=== PATIENT | female | born 1930 | race Caucasian/White ===

== ENCOUNTER 2016-10-20 10:19 | Observation (INO) | payer OTHER, MEDICARE ==
[~2016-10-20] VITALS: Ht 165.1 cm; Wt 94.1 kg
[~2016-10-20 10:19] MED LIST: 8 HOUR C500 MG PO; AMIODARONE HCL200 MG PO; ASCORBIC ACID500 M3 PO; ASPIRIN E.C.81 M1 PO; Ascorbic Acid,Ester- PO; C COMPLEX500 MG PO; CEFTIN500 MG PO; CIPRO250 MG PO; COUMADIN,JANTOVE2 MG PO; COUMADIN2 MG PO; Cipro PO; Cordarone, Pacerone PO; Coumadin Protocol PO; Coumadin,Jantoven PO; DELTASONE20 M1 PO; DOCUSATE SODIU100 MG PO; DUONEB 2.5-0.5 M3 ML AEROSOL; FEOSOL325 MG PO; FERRO-TIME325 MG PO; Feosol PO; GLUCOPHAGE XR750 MG PO; GLUCOPHAGE500 MG PO; Glucophage PO; HALFPRIN162 MG PO; JANUVIA100 MG PO; JANUVIA25 MG PO; K-DUR20 MEQ PO; KLOR-CON 1010 ME1 PO; LANTUS 10100 UNITS/ SC; LANTUS 3 M100 UNITS/ SC; LANTUS 3 M100 UNITS1 SC; LASIX20 MG PO; LASIX40 MG PO; LEVAQUIN250 MG PO; LEVAQUIN500 MG PO; LEVEMIR100 UNIT/2 SC; LEVOFLOXACIN250 MG PO; LEVOFLOXACIN750 MG PO; LIPITOR10 MG PO; LOPRESSOR100 M1 PO; LYRICA50 MG PO; Lasix PO; Lopressor PO; MICRO-K10 ME2 PO; MYRBETRIQ25 MG PO; Micro-K,K-Tab,K-Dur, PO; NEXIUM 24HR20 MG PO; NEXIUM40 MG PO; NORVASC10 MG PO; NORVASC5 MG PO; NOVOLOG 10100 UNITS/ IV; NOVOLOG PE100 UNITS/ SC; NYSTATIN15 GM TP; Norvasc PO; OS-CAL 500+D C1 EAC1 PO; OxyCODONE PO; Oyst-Cal D, Oscal W/ PO; PACERONE200 M1 PO; PACERONE200 MG PO; PROTONIX40 MG PO; Protonix PO; SINGULAIR10 MG PO; Singulair PO; THERAGRAN1 TABLET PO; TOPROL XL100 MG PO; TRAZODONE HCL50 MG PO; TYLENOL REGULA325 MG PO; Tylenol Regular Stre PO; VICODIN 5/500 PO; VICODIN,LORT1 TABLET PO; XARELTO15 MG PO; ZOCOR40 MG PO; Zocor PO; lantus SC
[2016-10-20 11:12] LABS: EOSINOPHIL (%) 2.2 % (0-5); EOSINOPHIL COUNT 0.3 K/uL (0-0.3); HEMATOCRIT 44.1 % (36.0-46.0); IMMATURE GRANULOCYTE (%) 0.7 % (0.0-0.7); LYMPHOCYTE COUNT 2.3 K/uL (1.0-2.8); MCH 31.1 PG (29.0-34.0); MCHC 33.1 G/DL (30.0-36.0); MCV 93.8 FL (83-99); MEAN PLAT.VOLUME 10.3 uM^3 (9.5-12.4); MONOCYTE (%) 6.9 % (3-12); MONOCYTE COUNT 0.9 K/uL (0-0.8); NEUTROPHIL (%) 72.8 % (45-76); NEUTROPHIL COUNT 9.9 K/uL (1.8-6.4); PLATELET COUNT 157 K/uL (156-360); RBC DIS.WIDTH-CV 14.2 % (11.8-14.6); RBC DIS.WIDTH-SD 46.8 % (39-53); WHITE BLOOD COUNT 13.6 K/uL (4.1-10.2)
[2016-10-20 11:38] LABS: CHLORIDE 101 mEq/L (99-109); POTASSIUM 3.9 mEq/L (3.7-5.4); SODIUM 143 mEq/L (136-147)
[2016-10-20 11:41] LABS: GLUCOSE 111 mg/dL (70-99)
[2016-10-20 11:42] LABS: ANION GAP 11 MEQ/L (2-14)
[2016-10-20 11:43] LABS: TOTAL BILIRUBIN 0.8 mg/dL (0.0-1.0)
[2016-10-20 11:44] LABS: ALKALINE PHOSPHATASE 64 IU/L (3-129); GFR ESTIMATE (CALCULATED) 35 mL/min/
[2016-10-20 11:45] LABS: TROP-I INTERPRETATION NEGATIVE; TROPONIN-I 0.06 ng/mL (0.0-0.30); UREA NITROGEN (BUN) 18 mg/dL (9-23)
[2016-10-20 11:47] LABS: CREATINE KINASE 32 IU/L (1-294); TOTAL CK 32 IU/L (1-294)
[2016-10-20 11:54] LABS: CK-MB 1.5 ng/mL (0.0-4.9)
[2016-10-20 13:01] LABS: ADD MIUA? YES; BILIRUBIN NEGATIVE; BLOOD NEGATIVE; COLOR YELLOW ((YELLOW)); GLUCOSE (STRIP) NEGATIVE; KETONES NEGATIVE; LEUKOCYTES LARGE; NITRITE POSITIVE; PROTEIN (STRIP) NEGATIVE; SPECIFIC GRAVITY 1.012 (1.000-1.030); UROBILINOGEN 0.2 MG/DL (0.2-1.0)
[2016-10-20 13:22] LABS: BACTERIA 3+ /HPF; EPITHELIAL CELLS RARE /HPF; HYALINE CASTS 0-5 /LPF; MUCUS TRACE /LPF; UCUL ADDED? YES; WHITE BLOOD CELLS TNTC /HPF (0-5)
[2016-10-20] MEDS ORDERED: DESYREL100 MG PO (15:08)
[2016-10-20] MEDS ORDERED: LEVEMIR100 UNIT/2 SC ×2 (15:14)
[2016-10-20 16:37] VITALS: BP 138/68
[2016-10-20 17:27] LABS: POINT-OF-CARE METER ID UU14162513
[2016-10-20 17:59] LABS: TROP-I INTERPRETATION NEGATIVE; TROPONIN-I 0.04 ng/mL (0.0-0.30)
[2016-10-20 20:00] VITALS: BP 128/63
[2016-10-20 22:14] LABS: POINT-OF-CARE METER ID UU14162513
[2016-10-20 23:44] LABS: TROP-I INTERPRETATION NEGATIVE; TROPONIN-I 0.05 ng/mL (0.0-0.30)
[2016-10-21] VITALS: BP 118/60
[2016-10-21 03:42] VITALS: BP 116/66
[2016-10-21 07:36] LABS: ANION GAP 8 MEQ/L (2-14); CHLORIDE 99 MEQ/L (99-109); GFR ESTIMATE (CALCULATED) 41 mL/min/; POTASSIUM 3.8 MEQ/L (3.7-5.4); SAMPLE HEMOLYSIS CHECK 0; SAMPLE ICTERIC CHECK 0; SAMPLE LIPEMIA CHECK 0; SODIUM 139 MEQ/L (136-147); UREA NITROGEN (BUN) 19 mg/dL (9-23)
[2016-10-21 07:38] LABS: HEMATOCRIT 37.5 % (36.0-46.0); MCH 31.3 PG (29.0-34.0); MCHC 33.3 G/DL (30.0-36.0); MEAN PLAT.VOLUME 10.9 uM^3 (9.5-12.4); PLATELET COUNT 127 K/uL (156-360); RBC DIS.WIDTH-CV 14.3 % (11.8-14.6); RBC DIS.WIDTH-SD 48.8 % (39-53); RED BLOOD COUNT 3.99 M/uL (3.80-5.20); WHITE BLOOD COUNT 13.8 K/uL (4.1-10.2)
[2016-10-21 07:39] LABS: GLUCOSE 77 mg/dL (70-99)
[2016-10-21 08:16] VITALS: BP 152/76
[2016-10-21] MEDS ORDERED: LEVOFLOXACIN750 MG PO (11:39)
[2016-10-21] MEDS ORDERED: LOPRESSOR25 MG PO (12:07)
[2016-10-21 12:13] VITALS: BP 167/87
== END 2016-10-21 14:00 | disposition home health service (06) ==
LOC: EME 10:19 → 5WEST 14:31 → EDOF 14:31 → 5WEST 16:24
PROVIDERS: Emergency Medicine; Internal Medicine
DX: R55 Syncope and collapse (principal); I48.2 Chronic atrial fibrillation; N39.0 Urinary tract infection, site not specified; I12.9 Hypertensive chronic kidney disease with stage 1 through stage 4 chronic kidney disease, or unspecified chronic kidney disease; N18.9 Chronic kidney disease, unspecified; R29.6 Repeated falls; I25.10 Atherosclerotic heart disease of native coronary artery without angina pectoris; E78.5 Hyperlipidemia, unspecified; Z95.1 Presence of aortocoronary bypass graft; E11.9 Type 2 diabetes mellitus without complications; Z79.4 Long term (current) use of insulin; M19.90 Unspecified osteoarthritis, unspecified site; Z86.718 Personal history of other venous thrombosis and embolism
CPT/HCPCS: 70450; 71010; 72070; 72110; 72125; 80048; 80053; 81003; 82550; 82553; 82948; 84484; 85025; 85027; 87077; 87086; 87186; 93005; 99281; 99285; G0378; G8978 GP CJ; G8979 GP CI; G8987 GO CJ; G8988 CI; J1335; J1815; J1956; J7050

== ENCOUNTER 2016-10-24 18:30 | Observation (INO) | payer OTHER, MEDICARE ==
[~2016-10-24] VITALS: Ht 165.1 cm; Wt 92.8 kg
[~2016-10-24 18:30] MED LIST changes: +DESYREL100 MG PO; +LOPRESSOR25 MG PO
[2016-10-24 20:41] LABS: BASOPHIL COUNT 0.1 K/uL (0-0.1); EOSINOPHIL (%) 2.4 % (0-5); EOSINOPHIL COUNT 0.3 K/uL (0-0.3); HEMATOCRIT 36.5 % (36.0-46.0); IMMATURE GRANULOCYTE (%) 0.7 % (0.0-0.7); IMMATURE GRANULOCYTE COUNT 0.1 K/uL; INSTRUMENT ABS NEUTROPHIL CT 8.8 K/uL; MCH 30.9 PG (29.0-34.0); MCHC 32.1 G/DL (30.0-36.0); MCV 96.3 FL (83-99); MEAN PLAT.VOLUME 11.8 uM^3 (9.5-12.4); MONOCYTE (%) 8.6 % (3-12); MONOCYTE COUNT 1.1 K/uL (0-0.8); NEUTROPHIL (%) 71.9 % (45-76); NEUTROPHIL COUNT 8.8 K/uL (1.8-6.4); PLATELET COUNT 120 K/uL (156-360); RBC DIS.WIDTH-CV 14.2 % (11.8-14.6); RBC DIS.WIDTH-SD 50.2 % (39-53); RED BLOOD COUNT 3.79 M/uL (3.80-5.20); WHITE BLOOD COUNT 12.3 K/uL (4.1-10.2)
[2016-10-24 20:51] LABS: CHLORIDE 102 mEq/L (99-109); INTER. NORMALIZED RATIO 1.1; POTASSIUM 4.2 mEq/L (3.7-5.4); PROTHROMBIN TIME 10.8 (9.2-11.2); SODIUM 139 mEq/L (136-147)
[2016-10-24 20:53] LABS: GLUCOSE 130 mg/dL (70-99)
[2016-10-24 20:54] LABS: ANION GAP 11 MEQ/L (2-14)
[2016-10-24 20:57] LABS: ALKALINE PHOSPHATASE 52 IU/L (3-129); GFR ESTIMATE (CALCULATED) 38 mL/min/
[2016-10-24 20:58] LABS: UREA NITROGEN (BUN) 21 mg/dL (9-23)
[2016-10-24 21:01] LABS: TOTAL BILIRUBIN 0.4 mg/dL (0.0-1.0)
[2016-10-24 21:06] LABS: TROP-I INTERPRETATION NEGATIVE; TROPONIN-I 0.03 ng/mL (0.0-0.30)
[2016-10-24] MEDS ORDERED: NOVOLOG PE100 UNITS/ SC (23:00)
[2016-10-24] MEDS ORDERED: OS-CAL 500+D T1 EAC1 PO (23:02)
[2016-10-24] MEDS ORDERED: TRAMADOL HCL50 MG PO (23:03)
[2016-10-24] MEDS ORDERED: LOPRESSOR25 MG PO (23:05)
[2016-10-24] MEDS ORDERED: LEVOFLOXACIN750 MG PO (23:06)
[2016-10-24] MEDS ORDERED: PROLIA60 MG/1 ML SC (23:07)
[2016-10-25 02:00] VITALS: BP 131/63
[2016-10-25 03:37] LABS: TROP-I INTERPRETATION NEGATIVE; TROPONIN-I 0.03 ng/mL (0.0-0.30)
[2016-10-25 08:35] LABS: POINT-OF-CARE METER ID UU13113831
[2016-10-25 10:02] VITALS: BP 99/73
[2016-10-25 10:44] VITALS: BP 154/61
[2016-10-25 11:23] LABS: TROP-I INTERPRETATION NEGATIVE; TROPONIN-I 0.02 ng/mL (0.0-0.30)
[2016-10-25 11:36] VITALS: BP 133/75
[2016-10-25 12:26] LABS: POINT-OF-CARE METER ID UU13113831
[2016-10-25 15:37] VITALS: BP 143/63
[2016-10-25] MEDS ORDERED: PERCOCET 7.51 TABLET PO (16:02)
[2016-10-25 17:28] LABS: POINT-OF-CARE METER ID UU13113831
== END 2016-10-25 19:44 | disposition home or self-care (01) ==
LOC: EME → EDBD 18:30 → 5WEST 10-25 00:03 → EDOF 10-25 00:03 → 5WEST 10-25 01:33
PROVIDERS: Emergency Medicine; Internal Medicine
DX: R07.9 Chest pain, unspecified (principal); I48.2 Chronic atrial fibrillation; I25.10 Atherosclerotic heart disease of native coronary artery without angina pectoris; I11.0 Hypertensive heart disease with heart failure; E11.9 Type 2 diabetes mellitus without complications; I50.9 Heart failure, unspecified; E78.5 Hyperlipidemia, unspecified; J44.9 Chronic obstructive pulmonary disease, unspecified; I25.2 Old myocardial infarction; D64.9 Anemia, unspecified; K21.9 Gastro-esophageal reflux disease without esophagitis; E66.01 Morbid (severe) obesity due to excess calories; Z86.718 Personal history of other venous thrombosis and embolism; Z95.1 Presence of aortocoronary bypass graft; Z79.01 Long term (current) use of anticoagulants
CPT/HCPCS: 71010; 80053; 82948; 84484; 85025; 85610; 93005; 99202; 99281; 99285; G0378

== ENCOUNTER 2016-11-10 18:52 | Observation (INO) | payer OTHER, MEDICARE ==
[~2016-11-10] VITALS: Ht 165.1 cm; Wt 92.6 kg
[~2016-11-10 18:52] MED LIST changes: +OS-CAL 500+D T1 EAC1 PO; +PERCOCET 7.51 TABLET PO; +PROLIA60 MG/1 ML SC; +TRAMADOL HCL50 MG PO
[2016-11-10 19:59] LABS: CHLORIDE 104 mEq/L (99-109); HEMATOCRIT 40.9 % (36.0-46.0); MCH 30.4 PG (29.0-34.0); MCHC 31.8 G/DL (30.0-36.0); MCV 95.8 FL (83-99); MEAN PLAT.VOLUME 10.2 uM^3 (9.5-12.4); POTASSIUM 4.4 mEq/L (3.7-5.4); RED BLOOD COUNT 4.27 M/uL (3.80-5.20); SODIUM 140 mEq/L (136-147)
[2016-11-10 20:01] LABS: GLUCOSE 138 mg/dL (70-99)
[2016-11-10 20:02] LABS: ANION GAP 14 MEQ/L (2-14)
[2016-11-10 20:03] LABS: TOTAL BILIRUBIN 0.3 mg/dL (0.0-1.0)
[2016-11-10 20:05] LABS: ALKALINE PHOSPHATASE 98 IU/L (3-129); GFR ESTIMATE (CALCULATED) 41 mL/min/
[2016-11-10 20:06] LABS: UREA NITROGEN (BUN) 14 mg/dL (9-23)
[2016-11-10 20:09] LABS: PLATELET COUNT 314 K/uL (156-360); WHITE BLOOD COUNT 7.2 K/uL (4.1-10.2)
[2016-11-10 21:31] LABS: BILIRUBIN NEGATIVE; BLOOD NEGATIVE; COLOR YELLOW ((YELLOW)); GLUCOSE (STRIP) NEGATIVE; KETONES 5; LEUKOCYTES NEGATIVE; NITRITE NEGATIVE; PROTEIN (STRIP) NEGATIVE; SPECIFIC GRAVITY 1.025 (1.000-1.030); UROBILINOGEN 0.2 MG/DL (0.2-1.0)
[2016-11-10 21:34] LABS: ADD MIUA? NO; UCUL ADDED? NO
[2016-11-10] MEDS ORDERED: LINZESS72 MCG PO (23:32)
[2016-11-10] MEDS ORDERED: LEVAQUIN250 MG PO (23:32)
[2016-11-10] MEDS ORDERED: NEXIUM40 MG PO (23:33)
[2016-11-10 23:42] LABS: INFLUENZA A VIRAL ANTIGEN NEGATIVE; INFLUENZA B VIRAL ANTIGEN NEGATIVE
[2016-11-11 01:07] VITALS: BP 144/65
[2016-11-11 05:00] VITALS: BP 140/66
[2016-11-11 06:36] LABS: BASOPHIL COUNT 0.1 K/uL (0-0.1); EOSINOPHIL (%) 2.2 % (0-5); EOSINOPHIL COUNT 0.1 K/uL (0-0.3); HEMATOCRIT 34.3 % (36.0-46.0); IMMATURE GRANULOCYTE (%) 0.7 % (0.0-0.7); INSTRUMENT ABS NEUTROPHIL CT 2.7 K/uL; LYMPHOCYTE COUNT 2.3 K/uL (1.0-2.8); MCH 29.7 PG (29.0-34.0); MCHC 30.9 G/DL (30.0-36.0); MCV 96.1 FL (83-99); MEAN PLAT.VOLUME 10.4 uM^3 (9.5-12.4); MONOCYTE (%) 9.3 % (3-12); MONOCYTE COUNT 0.5 K/uL (0-0.8); NEUTROPHIL (%) 46.8 % (45-76); NEUTROPHIL COUNT 2.7 K/uL (1.8-6.4); PLATELET COUNT 254 K/uL (156-360); RBC DIS.WIDTH-CV 13.7 % (11.8-14.6); RBC DIS.WIDTH-SD 48.9 % (39-53); RED BLOOD COUNT 3.57 M/uL (3.80-5.20); WHITE BLOOD COUNT 5.8 K/uL (4.1-10.2)
[2016-11-11 06:48] LABS: ALKALINE PHOSPHATASE 79 IU/L (3-129); ANION GAP 8 MEQ/L (2-14); CHLORIDE 108 MEQ/L (99-109); GFR ESTIMATE (CALCULATED) > 59 mL/min/; GLUCOSE 106 mg/dL (70-99); SAMPLE HEMOLYSIS CHECK 0; SAMPLE ICTERIC CHECK 0; SAMPLE LIPEMIA CHECK 0; SODIUM 139 MEQ/L (136-147); TOTAL BILIRUBIN 0.3 MG/DL (0.0-1.0); UREA NITROGEN (BUN) 11 mg/dL (9-23)
[2016-11-11 09:47] VITALS: BP 125/76
[2016-11-11 11:35] VITALS: BP 112/56
[2016-11-11 12:07] LABS: POINT-OF-CARE METER ID UU13113831
[2016-11-11] MEDS ORDERED: CEFTIN500 MG PO (17:11)
== END 2016-11-11 17:51 | disposition home health service (06) ==
LOC: EME 18:52 → EDOF 23:23 → 5WEST 23:23 → EDOF 23:23 → 5WEST 11-11 00:34
PROVIDERS: Emergency Medicine; Internal Medicine
DX: I48.2 Chronic atrial fibrillation (principal); E86.0 Dehydration; N39.0 Urinary tract infection, site not specified; R55 Syncope and collapse; I50.9 Heart failure, unspecified; I25.10 Atherosclerotic heart disease of native coronary artery without angina pectoris; E11.9 Type 2 diabetes mellitus without complications; M19.90 Unspecified osteoarthritis, unspecified site; E66.9 Obesity, unspecified; Z68.33 Body mass index [BMI] 33.0-33.9, adult; Z95.1 Presence of aortocoronary bypass graft
CPT/HCPCS: 70450; 80053; 81003; 82948; 85025; 85027; 87502; 93005; 94640; 99202; 99281; 99285; G0378; G8978 GP CJ; G8979 GP CI; G8987 GO CI; G8987 GO CM; J0696; J3480; J7030; J7050

== ENCOUNTER 2017-10-21 21:46 | Emergency (ER) | payer OTHER, MEDICARE ==
[~2017-10-21] VITALS: Ht 160 cm; Wt 84.2 kg
[~2017-10-21 21:46] MED LIST changes: +LINZESS72 MCG PO
[2017-10-21 22:29] LABS: HEMOGLOBIN 13.3 G/DL (11.9-15.5); MCH 32.5 PG (29.0-34.0); MCHC 33.3 G/DL (30.0-36.0); MCV 97.8 FL (83-99); PLATELET COUNT 175 K/uL (156-360); RBC DIS.WIDTH-CV 12.4 % (11.8-14.6); RBC DIS.WIDTH-SD 44.6 % (39-53); RED BLOOD COUNT 4.09 M/uL (3.80-5.20); WHITE BLOOD COUNT 5.1 K/uL (4.1-10.2)
[2017-10-21 22:42] LABS: ALBUMIN 3.7 g/dL (3.2-4.8)
[2017-10-21 22:43] LABS: CHLORIDE 101 mEq/L (99-109); POTASSIUM 4.4 mEq/L (3.7-5.4); SODIUM 140 mEq/L (136-147)
[2017-10-21 22:46] LABS: TOTAL PROTEIN 6.5 g/dL (6.4-8.3)
[2017-10-21 22:47] LABS: TOTAL BILIRUBIN 0.3 mg/dL (0.0-1.0)
[2017-10-21 22:48] LABS: ALKALINE PHOSPHATASE 95 IU/L (3-129)
[2017-10-21 22:49] LABS: CREATININE 1.5 mg/dL (0.6-1.3); GFR ESTIMATE (CALCULATED) 35 mL/min/
[2017-10-21 22:50] LABS: AST (GOT) 15 IU/L (2-34); UREA NITROGEN (BUN) 19 mg/dL (9-23)
[2017-10-21 22:52] LABS: ALT (GPT) 4 IU/L (3-49)
[2017-10-21 23:00] LABS: LIPASE 9 U/L (1.0-51.0)
[2017-10-21 23:05] LABS: GLUCOSE 434 mg/dL (70-99)
[2017-10-21 23:10] LABS: CARBON DIOXIDE (BICARBONATE) 27.9 MEQ/L (20-31)
[2017-10-21 23:13] LABS: APPEARANCE CLEAR ((CLEAR)); BILIRUBIN NEGATIVE; BLOOD MODERATE; COLOR YELLOW ((YELLOW)); GLUCOSE (STRIP) >=500; KETONES NEGATIVE; LEUKOCYTES NEGATIVE; NITRITE POSITIVE; PROTEIN (STRIP) NEGATIVE; SPECIFIC GRAVITY 1.021 (1.000-1.030); UROBILINOGEN 0.2 MG/DL (0.2-1.0)
[2017-10-21 23:19] LABS: BACTERIA RARE /HPF; EPITHELIAL CELLS RARE /HPF; HYALINE CASTS 0-5 /LPF; MUCUS TRACE /LPF; UCUL ADDED? NO; WHITE BLOOD CELLS 0-5 /HPF (0-5)
[2017-10-21] MEDS ORDERED: CEFTIN500 MG PO (23:44)
[2017-10-22 01:46] VITALS: BP 143/81
== END 2017-10-22 01:46 | disposition home or self-care (01) ==
LOC: EME 21:46
PROVIDERS: Emergency Medicine
DX: E11.65 Type 2 diabetes mellitus with hyperglycemia (principal); N30.91 Cystitis, unspecified with hematuria; Z79.4 Long term (current) use of insulin; Z87.440 Personal history of urinary (tract) infections; I11.0 Hypertensive heart disease with heart failure; I50.9 Heart failure, unspecified; J44.9 Chronic obstructive pulmonary disease, unspecified; E78.5 Hyperlipidemia, unspecified; I25.2 Old myocardial infarction; K21.9 Gastro-esophageal reflux disease without esophagitis; F41.9 Anxiety disorder, unspecified; D64.9 Anemia, unspecified; Z86.718 Personal history of other venous thrombosis and embolism; Z95.1 Presence of aortocoronary bypass graft; Z79.01 Long term (current) use of anticoagulants; Z88.5 Allergy status to narcotic agent; Z88.2 Allergy status to sulfonamides; Z88.0 Allergy status to penicillin
CPT/HCPCS: 80053; 81003; 82010; 82803; 82948; 83690; 85027; 99281; 99284; J7030